=== PATIENT | male | born 1985 | race Caucasian/White ===

== ENCOUNTER → 2021-09-12 | Outpatient (CLI) | payer BC ==
[~2021-09-12] MED LIST: KEFLEX250 MG PO; NO HOME MEDICATIONS
== END ==
LOC: MHCPAIN 10:10
DX: M47.812 Spondylosis without myelopathy or radiculopathy, cervical region (principal); M54.12 Radiculopathy, cervical region; R51.9 Headache, unspecified
CPT/HCPCS: G0463

== ENCOUNTER → 2021-11-08 | Outpatient (CLI) | payer BC | LOC: MHCPAIN 07:57 | DX: M47.812 Spondylosis without myelopathy or radiculopathy, cervical region (principal); M79.18 Myalgia, other site; M54.12 Radiculopathy, cervical region; R51.9 Headache, unspecified | CPT/HCPCS: G0463 ==

== ENCOUNTER → 2022-03-01 | Outpatient (CLI) | payer BC | LOC: MHCPAIN 07:55 | DX: M47.812 Spondylosis without myelopathy or radiculopathy, cervical region (principal); M54.12 Radiculopathy, cervical region; G44.86 Cervicogenic headache | CPT/HCPCS: G0463 ==